=== PATIENT | male | born 1980 | race Caucasian/White ===

== ENCOUNTER 2018-09-27 16:20 | Emergency (ER) | payer OTHER ==
[~2018-09-27] VITALS: Ht 182.9 cm; Wt 96.6 kg
[2018-09-27 16:29] VITALS: BP 147/86
[2018-09-27] MEDS ORDERED: VOLTAREN GEL 1100 G1 TOP (18:07)
[2018-09-27] MEDS ORDERED: FLEXERIL PO (18:07)
[2018-09-27] MEDS ORDERED: NAPROSYN500 MG PO (18:07)
== END 2018-09-27 18:48 | disposition home or self-care (01) ==
LOC: ER 16:20
DX: S39.012A Strain of muscle, fascia and tendon of lower back, initial encounter (principal); S13.4XXA Sprain of ligaments of cervical spine, initial encounter; F17.210 Nicotine dependence, cigarettes, uncomplicated; V59.88XA Occupant (driver) (passenger) of pick-up truck or van injured in other specified transport accidents, initial encounter; Y93.89 Activity, other specified; Y92.89 Other specified places as the place of occurrence of the external cause; Y99.8 Other external cause status